=== PATIENT | male | born 1945 | race Caucasian/White ===

== ENCOUNTER 2020-08-03 08:15 | Observation (INO) ==
--- NOTE | 2020-07-20 11:48 | Anesthesiology Consultation ---
Date of Service July 20, 2020 Assessment & Plan (1) Encounter for pre-operative examination: Chart Review Chart Review: Acceptable Risk for Surgery (pending DOS labs and preop Covid testing ) and Patient NOT seen in Pre Admission Testing Pt was rescheduled for surgery due to Covid surge- preop labs not updated- will order CBC with diff, PRP and coags for AM of surgery. -Pt will be doing [facility]- pt has no medical contraindications, BMI is <40 and pt is less than <75 years of age. Per nursing assessment 07/19/20, patient resides in [facility]. Travels to [facility] for [facility]. Wears mask in public. Pt denies any Covid infections in the past 90 days. Pt scheduled for preop Covid testing 07/30/20= will await results. History Surgery Operation Date: 08/03/20 10:40 Proposed Procedures p Right Total Knee Arthroplasty - Mikal Hatch, Height/Weight Height: 5 ft 7 in Weight: 74.843 kg Allergies Allergy/AdvReac Type Severity Reaction Status Date / Time No Known Allergies Allergy Verified 07/20/20 10:52 Medications Home Medications Medication Instructions Recorded Confirmed Last Taken amitriptyline 10 mg tablet 10 mg PO QAM 08/24/19 07/20/20 Unknown multivitamin,ng-ektu-ponvjadl 1 tab PO QAM 08/24/19 07/20/20 Unknown Probiotic 1 cap PO QAM 05/04/20 07/20/20 Unknown cholecalciferol (vitamin D3) 125 mcg PO QAM 05/04/20 07/20/20 Unknown [Vitamin D3] hglhhbsc-ekpvr-fmfxd-CF borate 1 tab PO QAM 05/04/20 07/20/20 Unknown [[facility]] lansoprazole [Prevacid 24Hr] 15 mg PO DAILY PRN 05/04/20 07/20/20 Unknown Past Medical History Medical History BPH (benign prostatic hyperplasia) GERD (gastroesophageal reflux disease) Hearing deficit left Osteoarthritis 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 Normal EKG per cardio. Chest X-Ray Date: 05/16/20 No pleural effusions. No pneumothorax. The left lung is clear. Possible 2.3 cm nodular density along the right lateral lung base. This could be due to overlapping soft tissues or a small diaphragmatic hernia.However, dedicated chest CT is recommended for confirmation. Otherwise, the right lung is clear. No evidence for pulmonary edema. Possible 7 mm focal erosion within the lateral aspect of the right scapula. This may be projectional. This could also be assessed on follow-up CT. (See CT scan below from 05/31/20) Other Testing Chest CT 05/31/20= A 2.7 cm focus of subpleural fat within the base of the right lower lobe. This corresponds to the chest x-ray abnormality is considered to be benign. No suspicious pulmonary nodules identified. Right-sided nephrolithiasis. No pneumothorax. No pleural effusions. The central airways are patent. A few small bibasilar linear densities suggesting subsegmental atelectasis. Small focal indentation within the cortex of the lateral body of the right scapula. This is considered to be within the range normal limits.
--- NOTE | 2020-08-01 14:19 | History & Physical Report ---
Date of Service August 01, 2020 Assessment & Plan (1) Osteoarthritis of right knee: We will proceed with a right total knee arthroplasty. Postoperatively he will be given some oral pain medications and discharged to home. He plans to use [facility] for rehab. History of Present Illness Chief Complaint: Osteoarthritis of the right knee. Primary Care Provider: Nohemi Segura MD Armen is a pleasant 74-year-old male who is been dealing with chronic increasing right knee pain. Is been going on for 20 years. X-rays and clinical examination have been diagnostic for advanced osteoarthritis of the patellofemoral joint of the right knee. After failing conservative treatment, including years of injections, he has elected proceed with a right total knee arthroplasty. . Allergies Allergy/AdvReac Type Severity Reaction Status Date / Time No Known Allergies Allergy Verified 07/20/20 10:52 Home Medications Medication Instructions Recorded Confirmed Type amitriptyline 10 mg tablet 10 mg PO QAM 08/24/19 07/20/20 History multivitamin,rg-auyw-edqmjvob 1 tab PO QAM 08/24/19 07/20/20 History Probiotic 1 cap PO QAM 05/04/20 07/20/20 History cholecalciferol (vitamin D3) 125 mcg PO QAM 05/04/20 07/20/20 History [Vitamin D3] yecqkzso-ostoe-dmbau-CF borate 1 tab PO QAM 05/04/20 07/20/20 History [[facility]] lansoprazole [Prevacid 24Hr] 15 mg PO DAILY PRN 05/04/20 07/20/20 History Past Med/Surg History Medical History BPH (benign prostatic hyperplasia) GERD (gastroesophageal reflux disease) Hearing deficit left Osteoarthritis Vertigo on Amitriptyline Vestibular migraine Surgical History History of colonoscopy History of tonsillectomy Family History Other No family history of adverse response to anesthesia Social History Smoking Status: Never smoker Second Hand Exposure: No; Hx Alcohol Use: No Hx Substance Use: No Preferred Language: Solomon Islander Communication Ability: Effective Brownell Operator Required: No Beliefs That Will Affect Care: None Current Living Situation: Spouse Feels Safe at Home: Yes Assistive Devices: Glasses Review of Systems All systems reviewed & are unremarkable except as noted in HPI & below. Physical Exam On physical examination of the right knee, he has full range of motion. He has pain over the patellofemoral joint. He is unable to squat past 50 degrees due to the anterior knee pain. . Results & Data Results & Data Laboratory Results . Diagnostic Findings X-rays of the right knee do show advanced osteoarthritis mostly involving the patellofemoral joint. MRI images of the right knee show no evidence of meniscus tear. There is mild to moderate arthritis in the medial and lateral compartments but severe arthritis of the patellofemoral joint. . PG Care Time/CCT Total # of Minutes Spent Total Time Spent with Patient: Total time spent is greater than 50% in coordin ation of care (as documented) at patient's floor/unit and/or counseling patient: Coding Level of Care Code None Diagnoses Osteoarthritis of right knee M17.11
--- NOTE | 2020-08-03 08:07 | History & Physical Bridge Note ---
Date of Service August 03, 2020 History & Physical Bridge Note I have examined the patient, reviewed the History & Physical and in the interval since the performance of the History & Physical I have noted the following changes of clinical significance: no changes noted
[~2020-08-03 08:15] MED LIST: ACETAMINOPHEN 500 MG TAB PO SCH; BUPIVACAINE 0.25% 30 ML VIAL ONE; BUPIVACAINE 0.5 % 5 MG/1 ML PF 10ML VIAL ONE; EPINEPHrine INJ 1 MG/ML AMP ONE; FAMOTIDINE 20 MG TAB PO SCH; GABAPENTIN 300 MG CAP PO SCH; LR 15ML/HR IV SCH; LR 60ML/HR IV SCH; MIDAZOLAM HCL 1 MG/ML 2ML VIAL ONE; ROPIVACAINE 0.5% HCL/PF 150 MG, BUPIVACAINE 0.75% MPF 20 ML, EPINEPHrine 30MG/30ML (OR ... INSTIL SCH; TRANEXAMIC ACID 1,000 MG **IV Intra-op IV SCH; TRANEXAMIC ACID 1,000 MG **IV Pre-op IV SCH; ceFAZolin 1000MG 1,000 MG/7.5 ML SYR IV SCH; dexAMETHasone 4 MG TAB PO SCH
[2020-08-03] MEDS ORDERED: LIDOCAINE/EPINEPHRINE 2% 1:200,000 20 ML SDV ONE (08:52)
[2020-08-03 08:56] LABS: Basophils # (auto) 0.02 K/uL (0-0.2); Basophils % (auto) 0.3 %; Eosinophils % (auto) 1.5 %; Hemoglobin 17.6 g/dL (14.0-18.0); Immature Granulocytes # (auto) 0.01 K/uL (0.00-0.02); Immature Granulocytes % (auto) 0.2 %; Lymphocytes # (auto) 2.24 K/uL (1.2-3.4); Lymphocytes % (auto) 34.1 %; Mean Corpuscular Hemoglobin 33.7 pg (25-34); Mean Corpuscular Volume 95.6 fL (80-100); Monocytes # (auto) 0.46 K/uL (0.11-0.59); Neutrophils # (auto) 3.73 K/uL (1.4-6.5); Neutrophils % (auto) 56.9 %; Platelet Count 195 K/uL (130-400); RDW Coefficient of Variation 12.7 % (11.5-14.5); RDW Standard Deviation 44.3 fL (36.4-46.3); Red Blood Count 5.23 M/uL (4.7-6.1); White Blood Count 6.56 K/uL (4.8-10.8)
[2020-08-03 09:06] LABS: Partial Thromboplastin Time 27.2 Seconds (21.0-31.0); Prothrombin Time 10.4 Seconds (9.0-12.0)
[2020-08-03] MEDS ORDERED: PROPOFOL IV EMULSION 10 MG/ML 20 ML VIAL IV ONE ×2 (09:14→11:10)
[2020-08-03] MEDS ORDERED: LIDOCAINE HCL 2% 2 ML VIAL/AMP(20MG/ML) INFIL ONE (09:14)
[2020-08-03] MEDS ORDERED: KETAMINE 50 MG/5 ML SYRINGE ONE (09:14)
[2020-08-03] MEDS ORDERED: ONDANSETRON INJ 2 MG/ML 2 ML VIAL ONE ×2 (09:14→11:10)
[2020-08-03] MEDS ORDERED: DEXAMETHASONE SOD INJ 4 MG/ML VIAL ONE ×2 (09:14→11:10)
[2020-08-03] MEDS ORDERED: ePHEDrine sulfate 50 MG/ML AMP ONE (09:14)
[2020-08-03 09:16] LABS: BUN Creatinine Ratio 23.5 (10-20); Calcium 9.7 mg/dl (8.5-10.1); Creatinine Clr Calc Pharmacy 56.8 ml/min; Est GFR (African American) 77.3; Est GFR (Non-African American) 66.7; Potassium 3.6 mmol/L (3.5-5.1)
[2020-08-03 09:20] LABS: Mean Corpuscular Hgb Conc 35.2 g/dL (32-36)
[2020-08-03] MEDS ORDERED: MIDAZOLAM HCL 1 MG/ML 2ML VIAL ONE ×2 (09:47)
[2020-08-03] MEDS ORDERED: ATROPINE SULFATE 0.1 MG/ML 10ML SYR IV PRN (09:48)
[2020-08-03] MEDS ORDERED: fentaNYL citrate 100 MCG/2 ML VIAL IV PRN (09:48)
[2020-08-03] MEDS ORDERED: ePHEDrine sulfate 50 MG/ML AMP IV PRN (09:48)
[2020-08-03] MEDS ORDERED: PROMETHAZINE HCL 6.25 MG in SODIUM CHLORIDE 0.9% 50 ML IV PRN (09:48)
[2020-08-03] MEDS ORDERED: ONDANSETRON INJ 2 MG/ML 2 ML VIAL IV PRN ×2 (09:48→16:39)
[2020-08-03] MEDS ORDERED: ORTHO JOINT ANESTHETIC ONE (09:59)
[2020-08-03] MEDS ORDERED: ESMOLOL HCL INJ 10 MG/ML 10ML VIAL IV ONE (10:59)
[2020-08-03] MEDS ORDERED: KETOROLAC 30 MG/ML VIAL ONE (11:10)
[2020-08-03] MEDS ORDERED: PHENYLEPHRINE 100MCG/ML 5ML SYR ONE (11:10)
--- NOTE | 2020-08-03 11:47 | Operative Report ---
PG Post Operative Report Pre & Post Diagnosis Operation Date: 08/03/20 10:40 Pre-Op Diagnosis: Right Knee Osteoarthritis Postoperative diagnosis: Right knee osteoarthritis I identified the patient and participated in the time-out.: Yes Procedure Operation Date: 08/03/20 10:40 Actual Procedures p Right Total Knee Arthroplasty(Right) - Mikal Hatch DO Surgeon Mikal Hatch DO Labourers Mikal Sarah PAC Estimated Blood Loss 20 Findings Consistent with Post-Op Diagnosis Specimens Right femoral and tibial bone Complications none Disposition Disposition: Recovery Room Indications Armen is a pleasant 74-year-old male who presented my office with complaints of right knee pain. X-rays showed advanced patellofemoral arthritis. MRI confirmed the advanced patellofemoral arthritis. After failing conservative treatment, he elected proceed with a right total knee arthroplasty. Description of Procedure Implants used: I used a Gris Persona total knee arthroplasty system with a size 9 femur, F tibia, 32 patella, and a size 10 medial congruent polyethylene bearing. All components were cemented in place with Palacos G cement. Armen arrived [facility] for the above procedure. He was se en in the preoperative holding area and the operative extremity was identified and signed. He was given a preoperative antibiotic, TXA, a spinal anesthetic and an adductor nerve block. He was taken back to the operating room and laid on the table in supine position. He was given basic sedation. The operative knee was then prepped and draped in sterile fashion. A timeout was done, and the patient and the operative extremity was properly identified. A midline incision was made directly over the patella. Dissection was taken down to the extensor mechanism. A subvastus arthrotomy was used. The medial retinaculum was released and the fat pad was mostly excised. The knee was flexed and the ACL, PCL, and meniscus were removed. A drill was sent down the center of the femoral canal followed by an intramedullary justa. Off that justa a distal femoral cutting block was placed. 9 mm was resected off the distal femur at 5 of valgus. A posterior referencing AP sizing guide was then placed on the distal femur. The femur measured to be a size 9. 2 drill holes were placed in 3 of external rotation. A 4-in-1 cutting block was then impacted into place. Anterior, posterior, and chamfer cuts were then made. The proximal tibia was then exposed. An external tibial alignment guide was placed. A tibial cut guide was then anchored in place and the proximal tibia was then resected. The posterior aspect of the knee was then opened up and any additional meniscus fragments and osteophytes were removed. The tibia measured to be a size F. The tibial plate was then placed in the appr opriate rotation and the tibia was drilled and punched. Trial components were then placed. I used a size 10 medial congruent polyethylene insert. The knee was brought through a full range of motion and felt to be stable. The peg holes for the femoral component were then drilled. The patella was then everted and 9 mm was resected off the posterior aspect of the patella. The patella measured to be a size 32. 3 peg holes were then drilled. A trial patella was placed. The knee was once again brought through a full range of motion and felt to be stable. Trial components were then removed. The surrounding soft tissues were injected with 100 cc of an orthopedic pain control cocktail. All components were then cemented into place with Palacos G cement. The final polyethylene insert was then snapped into place. Once cement was dry the tourniquet was deflated. Hemostasis was obtained. A dilute betadyne lavage was then done for 3 minutes. The joint was then irrigated with normal saline solution. The subvastus arthrotomy was then closed with #1 Vicryl suture. The skin was closed with 2-0 Vicryl, 3-0V lock suture, and mehnaz. A Silverlon and a soft compressive dressing were placed. He was then transferred to a hospital bed and taken to the postanesthesia care unit in stable condition. He tolerated the procedure well. Mikal Sarah PA-C, was present for the entire procedure. He was critical for patient positioning, prepping, draping, retraction exposure, wound closure and application of sterile dressing. I attest to the content of the Intraoperative Record and any orders documented therein. Any exceptions are noted below.
[2020-08-03] MEDS ORDERED: oxyCODONE/ACETAMINOPHEN 5mg/325mg TAB PO PRN (11:54)
--- NOTE | 2020-08-03 12:27 | XRay Report ---
RIGHT KNEE 2 VIEWS History: Right total knee arthroplasty. Degenerative arthritis. Postop. FINDINGS: The patient is status post a right total knee arthroplasty. The hardware is intact. No frac ture or dislocation. Skin mehnaz are in place. IMPRESSION: Right total knee arthroplasty. No evidence for hardware complication. ACT 112: Negative or not required by law. Electronically signed by: Mikael Clark M.D. 08/03/2020 12:26 PM
[2020-08-03] MEDS ORDERED: ONDANSETRON INJ 2 MG/ML 2 ML VIAL IV STA (14:22)
--- NOTE | 2020-08-03 14:33 | Anesthesia Procedure Note ---
Date of Service August 03, 2020 Anesthesia Post Epidural Note Vital Signs Vital Signs: Temp Pulse Resp BP Pulse Ox 36.6 C 133 H 18 132/89 93 08/03/20 13:30 08/03/20 14:00 08/03/20 14:00 08/03/20 14:00 08/03/20 14:00 Notes Mental Status: alert / awake / arousable Patient Amnestic to Procedure: Yes Nausea / Vomiting: adequately controlled Pain: adequately controlled Airway Patency, RR, SpO2: stable & adequate BP & HR: stable & adequate Hydration State: stable & adequate Neuraxial Anesthesia: was administered and sensory block is resolving Anesthetic Complications: no major complications apparent and Pt Satisfied with anesthetic care Epidural: Removed without complications and With tip intact
--- NOTE | 2020-08-03 14:33 | Anesthesiology Progress Note ---
Date of Service August 03, 2020 Anesthesia Post Procedure Vital Signs Vital Signs: Temp Pulse Pulse Pulse Resp BP BP 08/03/20 14:00 133 H 18 132/89 08/03/20 13:30 36.6 C 120 H 18 136/89 08/03/20 12:59 36.8 C 120 H 18 135/84 08/03/20 12:33 36.8 C 116 H 18 134/79 08/03/20 12:25 36.8 C 116 H 20 123/74 08/03/20 12:15 115 H 20 123/86 08/03/20 12:05 116 H 15 148/81 H 08/03/20 11:56 36.4 C L 115 H 24 122/80 08/03/20 08:41 36.7 C 95 H 18 164/90 H Pulse Ox 08/03/20 14:00 93 08/03/20 13:30 95 08/03/20 12:59 94 08/03/20 12:33 93 08/03/20 12:25 92 08/03/20 12:15 93 08/03/20 12:05 98 08/03/20 11:56 99 08/03/20 08:41 97 Transfer of Care Handoff Completed per policy Notes Mental Status: alert / awake / arousable Patient Amnestic to Procedure: Yes Nausea / Vomiting: adequately controlled Pain: adequately controlled Airway Patency, RR, SpO2: stable & adequate BP & HR: stable & adequate Hydration State: stable & adequate Neuraxial Anesthesia: was administered and sensory block resolved Anesthetic Complications: no major complications apparent and Pt Satisfied with anesthetic care Notes: Patient had IPACK block that caused decreased dorsiflexion of his right foot (operative limb). Physical therapy evaluated patient and felt he was a fall risk if he went home. Decision was made to admit patient overnight as he had been in the outpatient joint protocol. Patient was ok with this decision as was the attending surgeon. I spoke personally to the patient's and she was extremely happy that he was spending the night. Of note, he is able plantar flex but very weak when asked to dorsiflex. Pain is very well controlled. Denies nausea. Voided.
[2020-08-03] MEDS ORDERED: MAGNESIUM HYDROXIDE SUSP 30 ML UDC PO PRN (16:39)
[2020-08-03] MEDS ORDERED: METOCLOPRAMIDE HCL INJ 5 MG/ML 2 ML VIAL IV PRN (16:39)
[2020-08-03] MEDS ORDERED: bisacodyL 10 MG SUPP PR PRN (16:39)
[2020-08-03] MEDS ORDERED: NALOXONE HCL 0.4 MG/1 ML VIAL/CARP IV PRN (16:39)
[2020-08-03] MEDS ORDERED: SODIUM CHLORIDE 0.9% 1000ML 1,000 ML IV SCH (16:39)
[2020-08-03] MEDS ORDERED: oxyCODONE HCL IR 5 MG TAB (IMMEDIATE RELEASE) PO PRN (16:39)
[2020-08-03] MEDS ORDERED: HYDROmorphone INJ 0.5 MG/0.5 ML SYR IV PRN (16:39)
[2020-08-03] MEDS ORDERED: PANTOprazole 40 MG TAB PO PRN (16:43)
[2020-08-03] MEDS: ceFAZolin 2000MG 2,000 MG/15 ML SYR IV SCH (18:38)
[2020-08-03] MEDS: KETOROLAC 30 MG/ML VIAL IV SCH (18:38)
[2020-08-03] MEDS: ASPIRIN 81 MG ECTAB PO SCH (20:49)
[2020-08-03] MEDS: ACETAMINOPHEN 500 MG TAB PO SCH (20:49)
[2020-08-03] MEDS: DOCUSATE SODIUM 100 MG CAP PO SCH (20:49)
[2020-08-03] MEDS ORDERED: TAMSULOSIN HCL 0.4 MG CAP PO SCH (21:00)
[2020-08-03] MEDS ORDERED: SENNA 8.6 MG TAB PO SCH (21:00)
[2020-08-04] MEDS: KETOROLAC 30 MG/ML VIAL IV SCH ×2 (00:57→05:59)
[2020-08-04] MEDS: ceFAZolin 2000MG 2,000 MG/15 ML SYR IV SCH (01:16)
[2020-08-04] MEDS: ACETAMINOPHEN 500 MG TAB PO SCH ×2 (05:59→13:31)
[2020-08-04 06:39] LABS: Hematocrit (blood only) 44.1 % (42-52); Hemoglobin 15.4 g/dL (14.0-18.0); Mean Corpuscular Hemoglobin 33.2 pg (25-34); Mean Corpuscular Hgb Conc 34.9 g/dL (32-36); Platelet Count 199 K/uL (130-400); RDW Coefficient of Variation 12.6 % (11.5-14.5); RDW Standard Deviation 43.3 fL (36.4-46.3); Red Blood Count 4.64 M/uL (4.7-6.1); White Blood Count 19.72 K/uL (4.8-10.8)
[2020-08-04 06:41] LABS: BUN Creatinine Ratio 24.8 (10-20); Calcium 9.3 mg/dl (8.5-10.1); Creatinine Clr Calc Pharmacy 60.6 ml/min; Est GFR (African American) 83.7; Est GFR (Non-African American) 72.2; Potassium 4.1 mmol/L (3.5-5.1)
--- NOTE | 2020-08-04 07:11 | Orthopedic Progress Note ---
Date of Service August 04, 2020 Assessment & Plan (1) Status post right knee replacement: He is doing well with his right knee. The loss of dorsiflexion his ankle is a bit concerning. He did have a popliteal block and that seems to be taking some time to subside. He also had a pericapsular injection of Marcaine during the procedure. This can also affect the peroneal nerve and cause prolonged loss of dorsiflexion. I am thinking that when the nerve blocks wear off the dorsiflexion should return, however, there is a slight possibility of a stretch injury to the peroneal nerve. I think will watch it today. He will be seen by physical therapy. If the dorsiflexion returns in his right foot then he can be discharged home today. If the dorsiflexion does not return then he should stay overnight and I will see him tomorrow and discuss the next treatment option. He is currently on aspirin for DVT prophylaxis. He already has all his pain medications at home. Silvia Ayers was seen and examined at bedside this morning. Overall he is doing well with his knee. Is not having much pain. He can activate his quad. Unfortunately does not have any dorsiflexion of his right ankle yet. He still has numbness on the dorsal aspect of his right foot. He has no other complaints.. Review of Systems All systems reviewed & are unremarkable except as noted in HPI & below. Physical Exam On physical examination of his right knee, the circumferential compressive dressing was removed. The Silverlon was left in place. He did not have any excessive swelling or deformity. He has some numbness on the dorsal aspect of his foot and unable to dorsiflex. He had good quad strength.. Results & Data Results & Data Laboratory Results H & H 08/03/20 08/04/20 Range/Units 08:46 05:50 Hgb 17.6 15.4 (14.0-18.0) g/dL Hct 50.0 44.1 (42-52) % Coagulation 08/03/20 Range/Units 08:46 INR 1.0 (0.9-1.1) . Diagnostic Findings Postoperative x-rays of the right knee show the prosthesis to be in anatomic alignment without any evidence of fracture, dislocation, or loosening.. PG Care Time/CCT Total # of Minutes Spent Total Time Spent with Patient: Total time spent is greater than 50% in coordin ation of care (as documented) at patient's floor/unit and/or counseling patient: Coding Level of Care Code 02958 Post Operative Follow-Up Diagnoses Status post right knee replacement Z96.651
[2020-08-04] MEDS ORDERED: dexAMETHasone 4 MG TAB PO SCH (08:00)
[2020-08-04] MEDS: DOCUSATE SODIUM 100 MG CAP PO SCH (08:40)
[2020-08-04] MEDS: ASPIRIN 81 MG ECTAB PO SCH (08:40)
[2020-08-04] MEDS ORDERED: ADVANCED PROBIOTIC 1250 MG CAPSULE PO SCH (09:00)
[2020-08-04] MEDS ORDERED: CHOLECALCIFEROL 1,000 UNITS 25 MCG TAB PO SCH (09:00)
[2020-08-04] MEDS ORDERED: NON-FORMULARY MEDICATION (Glucosam-Chond-Hyalu-Cf Borate [Move Free Joint Health] 750 mg-1 PO SCH (09:00)
[2020-08-04] MEDS ORDERED: AMITRIPTYLINE HCL 10 MG TAB PO SCH (09:00)
[2020-08-04] MEDS ORDERED: MULTIVITAMIN TAB PO SCH (09:00)
[2020-08-04] MEDS ORDERED: CEROVITE ADV FORMULA TAB PO SCH (09:00)
[2020-08-04] MEDS ORDERED: KETOROLAC 30 MG/ML VIAL IV ONE (12:15)
[2020-08-04] MEDS ORDERED: KETOROLAC TROMETHAMINE 15 MG/ML VIAL IV SCH (18:00)
--- NOTE | 2020-08-05 07:03 | Discharge Summary ---
Date of Service August 05, 2020 Admission HPI (Per Admitting) Armen is a pleasant 74-year-old male who is been dealing with chronic increasing right knee pain. Is been going on for 20 years. X-rays and clinical examination have been diagnostic for advanced osteoarthritis of the patellofemoral joint of the right knee. After failing conservative treatment, including years of injections, he has elected proceed with a right total knee arthroplasty. . Admission Exam (Per Admitting) On physical examination of the right knee, he has full range of motion. He has pain over the patellofemoral joint. He is unable to squat past 50 degrees due to the anterior knee pain. . Principal Diagnosis Same as "Discharge Diagnosis" noted below under Discharge Instructions. Discharge Exam On physical examination of his right knee, the circumferential compressive dressing was removed. The Silverlon was left in place. He did not have any excessive swelling or deformity. He has some numbness on the dorsal aspect of his foot and unable to dorsiflex. He had good quad strength.. Discharge Data Consultations 08/03/20 16:39 Consult Case Management - Discharge Planning Routine Procedures Performed Operation Date: 08/03/20 10:40 Actual Procedures p Right Total Knee Arthroplasty(Right) - Mikal Hatch DO Ordered Studies 08/03/20 05:00 US - OR guided needle placemen Routine Hospital Course (1) Status post right knee replacement: On August 03, 2020 Armen arrived at [facility] and underwent a right total knee arthroplasty without complication. He had a in the epidural anesthesia nerve block. Postoperatively he was started on aspirin for DVT prophylaxis and was initially supposed to go home as an outpatient. Unfortunately the nerve blocks were still in effect and he was unable to dorsiflex his right foot. We decided to keep him overnight in the hospital for safety precautions. On postop day #1 his H&H was stable and his pain was well controlled. The block was still in effect. When I saw him in the morning he was still unable to dorsiflex his right foot. By around lunchtime the dorsiflexion of his foot had returned. He was seen by physical therapy and able to participate well. He was then discharged to home. He will follow-up with orthopedics in 2 weeks. PG Care Time/CCT Total # of Minutes Spent Total Time Spent with Patient: Total time spent is greater than 50% in coordination of care (as documented) at patient's floor/unit and/or counseling patient: Discharge Plan Discharge Items Patient Disposition: Home - Self-Care Reason For Visit: Right Knee Osteoarthritis Discharge Diagnosis: same as above Activity: Per Instructions section Non-emergency contact: Surgeon Call non-emergency contact if: your wound has increased redness and your wound has increased drainage Follow-up/Referrals: Nohemi Segura MD [Primary Care Provider] - Diet: Regular Addtl Attending Provider Instructions: Activity and Therapy Recommendations: * If you are using [facility] then Physical Therapy will be provided until they feel you are ready to start Outpatient Physical Therapy. If you are not using a Home Health agency then Outpatient Physical Therapy should start about 3-5 days from your day of surgery. Therapy will last about 6-10 weeks * It is important not to put a pillow under your knee when you are relaxing or sleeping. It is just as important to make sure you are getting your knee perfectly straight as it is to regain your knee bend. * You were shown a series of exercises in the hospital. Do these exercises three times each day including the exercises you were shown in physical therapy. * Get up and walk several times each day. For the first four weeks, try not to stand or walk for more than one hour at a time. If you do stand or walk for more than one hour, you will not hurt anything, but your leg will likely swell. * As you feel comfortable, you may change from the walker or crutches to a cane and then to independent walking. Medications: * Narcotic You will likely be sent home from the hospital with a prescription for the narcotic pain medication that worked best throughout your stay. * Aspirin Most patients will be required to take Aspirin 81mg twice a day for 6 weeks after surgery. This is obtained [id number] and a prescription is not necessary. * Other medications may be prescribed for specific circumstances. If you have any questions, please call the office at . * Resume previous home medications unless otherwise instructed TEDs/Elastic Stockings: The white elastic stockings help limit swelling and prevent blood clots from forming in your legs.~ The more you wear them, the more they work. Wear them for six weeks. Dressing Care: If the incision is not draining then you may leave the mehnaz open to air. If there is a little bit of drainage or if the mehnaz are getting stuck on your clothing then cover the incision with a dry dressing. The mehnaz will be removed at your 2 week follow-up appointment. Showering: You may shower 5 days from the day of surgery. Let the soapy shower water run over the mehnaz and pat them dry. Do not scrub or soak the incision. Things To Watch For: * Drainage from the incision site that occurs more than one week after your surgery. * Increased redness at the incision site. * Fever above 102 degrees Fahrenheit. * Unusual chest pain or shortness of breath. * Call [facility] at with any of the above problems Follow-Up Visit: Follow-up with Dr. Hatch 2-3 weeks after your day of surgery. An appointment was probably scheduled when you signed-up for surgery in the office. If you have any questions call Office Instructions: More detailed instructions as well as Frequently Asked Questions were provided in a folder by our office when you signed-up for surgery. Please review these instructions when you get home. If you have any further questions or concerns, please feel free to call the office at [phone] Pending Studies at Discharge: No Stand-Alone Forms: Anesthesia/Sedation, Adult, [facility], Opioid Pain Management, Smoking Cessation Medications and DC Order Prescriptions: Continued ondansetron HCl [Zofran] 4 mg tablet 4 mg PO Q8H PRN (Reason: nausea and vomiting) Qty: 10 RF: 0 Senokot Extra Strength 17.2 mg tablet 17.2 mg PO DAILY PRN (Reason: constipation) Qty: 10 RF: 0 tamsulosin [Flomax] 0.4 mg capsule 0.4 mg PO DAILY Qty: 2 RF: 0 celecoxib [Celebrex] 200 mg capsule 200 mg PO BID Qty: 16 RF: 0 oxycodone-acetaminophen [Percocet] 5-325 mg tablet 1 tab PO Q6H PRN (Reason: pain) Qty: 30 RF: 0 amitriptyline 10 mg tablet 10 mg PO QAM RF: 0 Complete Multivitamin Tablet 1 tab PO QAM RF: 0 lansoprazole [Prevacid 24Hr] 15 mg Capsule,Delayed Release(Dr/Ec) 15 mg PO DAILY PRN (Reason: Acid Reflux) RF: 0 cholecalciferol (vitamin D3) [Vitamin D3] 125 mcg (5,000 unit) Tablet 125 mcg PO QAM RF: 0 [facility] 750 mg-100 mg- 1.65 mg-108 mg Tablet 1 tab PO QAM RF: 0 Probiotic 1 cap PO QAM RF: 0 Discharge Orders: Discharge Order (Routine); Ordered 08/04/20 Ordered By: Mikal Leggett/Other Patient Handouts: DVT Post Op Prevention Admission Data Admit Date/Time: 08/03/20 14:44 Attending Provider: Mikal Hatch Admit Provider: Mikal Hatch Primary Care Provider: Nohemi Segura Other Interventions: Discharge Summary Assessment (RN) Last Done: 08/04/20 15:27
== END 2020-08-04 16:11 | disposition home or self-care (01) ==
LOC: 3E 08:15 → ASU 08:15